=== PATIENT | male | born 1960 | race Caucasian/White ===

== ENCOUNTER 2021-05-07 10:15 | Emergency (ER) | payer BC, SELFPAY ==
[2021-05-07 10:22] VITALS: BP 174/91; PULSE 73; RESP 20; TEMP 36.6; O2SAT 99
--- NOTE | 2021-05-07 10:22 | ED.WOUNDLAC ---
HPI - Wound/Laceration General Chief Complaint: Skin/Abscess/Foreign Body Stated Complaint: Laceration to Finger Source: patient and RN notes reviewed Mode of arrival: ambulatory Limitations: no limitations History of Present Illness HPI narrative: Ivan a 58-year-old male patient who ambulated into the [facility]. Patient has a 4 cm laceration on his left index finger patient states he was using a saw and the board slipped. Patient states he can move the finger and has feeling to the distal tip. Patient states he has a recent tetanus shot. Related Data Home Medications Medication Instructions Recorded Confirmed albuterol sulfate 90 mcg INHALATION DIRECTED PRN 05/07/21 05/07/21 atorvastatin 20 mg PO DAILY 05/07/21 05/07/21 fluticasone furoate-vilanterol inh INHALATION DIRECTED PRN 05/07/21 [Breo Ellipta] losartan-hydrochlorothiazide 100 tablet PO DAILY 05/07/21 05/07/21 Allergies Allergy/AdvReac Type Severity Reaction Status Date / Time venom-honey bee Allergy Unknown Swelling Unverified 05/07/21 11:20 Review of Systems Review of Systems: CONSTITUTIONAL: Denies body aches, fever, chills, or sweats. EYES: Denies visual changes, redness, or discharge. ENT: Denies rhinorrhea, congestion, sore throat, or otalgia. CARDIOVASCULAR: Denies chest pain, palpitations, or edema. RESPIRATORY: Denies cough or dyspnea. GASTROINTESTINAL: Denies abdominal pain, nausea, vomiting, or diarrhea. GENITOURINARY: Denies dysuria or hematuria. SKIN: Denies rash, itching; laceration to left index finger. MUSCULOSKELETAL: Denies back pain, joint pain, or myalgia. NEUROLOGIC: Denies headache, numbness, tingling, or weakness. PSYCH: Denies depression or anxiety. All systems reviewed & are unremarkable except as noted in HPI and below PMFSH Comments At time of signature, I have reviewed and agree with nursing past medical, surgical, social and family history unless otherwise noted. Please see nursing chart for further information. There is no relevant family history pertinent to the presenting complaint Exam Narrative: GENERAL: Well-appearing, well-nourished, and in no acute distress. HEAD: Normocephalic, atraumatic. EYES: EOMI. No redness or drainage. Conjunctivae normal. ENT: Mucous membranes pink and moist. Nares clear. No rhinorrhea. TMs normal bilaterally. Throat normal. Uvula midline. NECK: Normal AROM. Supple. No lymphadenopathy. CHEST: No respiratory distress. Clear to auscultation. HEART: Regular rate and rhythm. No murmur appreciated. Normal peripheral pulses. ABDOMEN: Soft, nontender, nondistended, normal active bowel sounds. MUSCULOSKELETAL: No bony tenderness. EXTREMITIES: Normal range of motion. No edema. SKIN: Warm, dry, no rash. Capillary refill normal. Normal skin turgor.4cm jagged laceration to left index finger, distal sensation intact; flexion and extension intact. NEURO: No focal deficits. Alert and oriented x3. Gait steady. PSYCH: Normal affect. No signs of depression or anxiety. Course Vital Signs Vital signs: Vital Signs Temperature 36.6 C 05/07/21 10:22 Pulse Rate 73 05/07/21 10:22 Respiratory Rate 20 05/07/21 10:22 Blood Pressure 174/91 H 05/07/21 10:22 Pulse Oximetry 99 05/07/21 10:22 Temperature 36.6 C 05/07/21 10:22 Pulse Rate 73 05/07/21 10:22 Respiratory Rate 20 05/07/21 10:22 Blood Pressure 174/91 H 05/07/21 10:22 Pulse Oximetry 99 05/07/21 10:22 Reviewed. Pt has been instructed to follow up with his PCP regarding his elevated blood pressure today. Procedures Laceration Laceration 1: Date: 05/07/21 Time: 11:04 Site: upper extremity (left index finger) Side (If applicable): left Size (cm): 4 Description: linear and irregular Depth: simple, single layer Local Anesthetic: lidocaine 1% Amount of anesthesia used (mL): 5 Pre-repair: wound explored and irrigated ====== Skin L
== END 2021-05-07 11:11 | disposition home or self-care (01) ==
PROVIDERS: Emergency Provider Nurse Practitioner Family
DX: S61.211A Laceration without foreign body of left index finger without damage to nail, initial encounter (principal); W27.0XXA Contact with workbench tool, initial encounter; E78.00 Pure hypercholesterolemia, unspecified; I10 Essential (primary) hypertension; J45.909 Unspecified asthma, uncomplicated; G47.30 Sleep apnea, unspecified
CPT/HCPCS: 12002; 99202; G0463